=== PATIENT | female | born 1940 | race Caucasian/White ===

== ENCOUNTER 2018-11-01 06:53 | Day surgery (SDC) | payer MEDICARE, OTHER ==
[~2018-11-01 06:53] MED LIST: Lactated Ringers 1,000 ML IV SCH; Sodium Chloride 0.9% 10 ML Syringe FLUSH PRN
[2018-11-01] MEDS ORDERED: Propofol 200 MG/20 ML SDV IV ONE (06:54)
[2018-11-01] MEDS ORDERED: Lidocaine 2% 100 MG/5 ML Syringe IVPUSH ONE (06:54)
--- NOTE | 2018-11-01 08:18 | PCM.PN ---
- General Info Date of Service: 11/01/18 Admission Dx/Problem (Free Text): Patient here for colonoscopy because of a history of colon polyps Subjective Update: Last colonoscopy was 3 years ago. She has irregular bowel habits but no recent change. - Review of Systems General: Reports: Other (Gnerally felling well) Gastrointestinal: Reports: Other (No change in bowel pattern but irregular. No bleeding) - Patient Data Vitals - Most Recent: Last Vital Signs Temp 97.7 F 11/01/18 07:12 Pulse 111 H 11/01/18 07:12 Resp 16 11/01/18 07:12 BP 124/71 11/01/18 07:12 Pulse Ox 97 11/01/18 07:12 Weight - Most Recent: 272 lb Med Orders - Current: Current Medications Lactated Ringer's (Ringers, Lactated) 1,000 mls @ 125 mls/hr IV ASDIRECTED KAT Last Admin: 11/01/18 07:25 Dose: 125 mls/hr Sodium Chloride (Saline Flush) 10 ml FLUSH ASDIRECTED PRN PRN Reason: Keep Vein Open - Exam General: Alert, Oriented Lungs: Clear to Auscultation Cardiovascular: Regular Rate, Regular Rhythm GI/Abdominal Exam: Soft - Problem List Review Problem List Initiated/Reviewed/Updated: Yes - My Orders Last 24 Hours: My Active Orders 10/31/18 Dinner Nothing Per Oral Diet [DIET] 11/01/18 06:45 Patient Status [ADT] Routine Blood Glucose Check, Bedside [RC] ONETIME Patient to Empty Bladder [RC] ASDIRECTED Verify Patient Consent Obtain [RC] ASDIRECTED Lactated Ringers [Ringers, Lactated] 1,000 ml IV ASDIRECTED Sodium Chloride 0.9% [Saline Flush] 10 ml FLUSH ASDIRECTED PRN Peripheral IV Insertion Adult [OM.PC] Routine - Assessment Assessment:: History of colon polyps Diabetes Pacemaker in place HTN - Plan Plan:: Colonoscopy I have discussed the proposed colonoscopy with the patient. She agrees to proceed accepting risks
--- NOTE | 2018-11-01 09:05 | PCM.OPNOTE ---
- General Post-Op/Procedure Note Date of Surgery/Procedure: 11/01/18 Operative Procedure(s): Colonoscopy with Polypectomy Findings: Small polyp at hepatic flexure Extensive Sigmoid Diverticulosis without acute inflammation Pre Op Diagnosis: History of colon polyps Post-Op Diagnosis: Colon Polyp. Sigmoid Diverticulosis Anesthesia Technique: MAC Primary Surgeon: Johan Ugarte Pathology: Hepatic Flexure Polyp Output, Urine Amount: 0 EBL in mLs: 0 Complications: None Condition: Good
[2018-11-01 11:06] VITALS: BP 104/62; PULSE 72
--- NOTE | 2018-11-01 14:57 | OR ---
DATE OF OPERATION: 11/01/2018 SURGEON: Johan Ugarte MD PREOPERATIVE DIAGNOSIS: History of colon polyps. POSTOPERATIVE DIAGNOSES: Colon polyp and sigmoid diverticulosis. OPERATION PERFORMED: Colonoscopy with polypectomy. INDICATIONS FOR SURGERY: This 77-year-old female has a known history of colon polyps. She comes today for surveillance exam 3 years after her last colonoscopy. FINDINGS: A single polyp was identified today in the hepatic flexure. This was a 7-mm sessile polyp. The patient also has extensive diverticulosis of the sigmoid region, although this does not appear to be acutely inflamed or otherwise complicated. Her colon otherwise is normal. PROCEDURE IN DETAIL: The patient was taken to the procedure room. She was given intravenous sedation, and with her in the left lateral decubitus position, digital rectal exam was performed showing no rectal masses. The Olympus colonoscope was inserted into the rectum. Retroflexed examination of the rectal canal was performed. The scope was then carefully advanced under direct visualization through the entire length of the colon until the cecum was reached. This was somewhat difficult through a tortuous sigmoid region because of her diverticulosis as well as a tortuous right colon, but eventually with hand pressure, the cecum was able to be reached and carefully examined. The normal internal anatomy of the cecum was identified including the appendiceal orifice and ileocecal valve. After carefully examining the cecum, the scope was slowly withdrawn, and at the hepatic flexure, the above-described polyp was identified. This was removed with a cautery snare and retrieved into a polyp trap. The examination was continued sequentially re-examining the colonic segments until the entire colon and rectum had been fully examined. The scope was removed and the patient was taken from the procedure room in satisfactory condition. ESTIMATED BLOOD LOSS: 0. COMPLICATIONS: None. PROGNOSIS: Good. /[id number] EDWAR/MAILE
== END 2018-11-01 10:02 | disposition home or self-care (01) ==
LOC: FB.SDS 06:53
PROVIDERS: ATTEND Surgery
DX: Z12.11 Encounter for screening for malignant neoplasm of colon (principal); K63.5 Polyp of colon; K57.30 Diverticulosis of large intestine without perforation or abscess without bleeding; E11.9 Type 2 diabetes mellitus without complications; I10 Essential (primary) hypertension; Z86.010 Personal history of colon polyps; Z95.0 Presence of cardiac pacemaker
CPT/HCPCS: 00811; 45385; 82962; 88305; J2001; J2704; J7120